=== PATIENT | male | born 1950 | race Two or more races ===

== ENCOUNTER 2024-10-15 22:57 | Emergency (ER) | payer OTHER, MEDICAID, SELFPAY ==
[2024-10-15 23:03] VITALS: BP 184/74; PULSE 104; PULSE 77; RESP 18; RESP 20; TEMP 37.3; O2SAT 100; O2SAT 98
[2024-10-15 23:06] VITALS: BMI 24.2
[2024-10-16] VITALS (7 sets, daily range): BP systolic 113–146; BP diastolic 63–85; PULSE 74–120; RESP 16–20; TEMP 36.7–37.2; O2SAT 95–100
[2024-10-16] MEDS: LIDOCAINE JELLY 2% (Urojet) 10 ML TUBE TOP (00:02)
--- NOTE | 2024-10-16 00:04 | PD.EDMALE ---
ED Male Genitalurinary RME/HPI General Chief complaint: Urogenital-Male Stated complaint: bleeding from penis Time Seen by Provider: 10/15/24 23:32 Arrival date/time: 10/15/24 22:57 Limitations: no limitations RME / HPI RME / HPI Narrative: Dr. Garner's Main ED Evaluation: 73yo male with a history of paraplegia following spinal sxm neurogenic bladder with indwelling catheter and hx of MDR UTIs, aFib not on anticoagulation, PAD, Right AKA, BPH, and DM BIBA from [facility] presents to the ED due to his penile area bleeding. Patient states he was having his lorenzo catheter changed by [facility] staff as a routine change. He states the regular nurse that changes his catheter was not there today and may have inserted it wrong. Patient states he has been unable to urinate since then and has had lower abdominal pain. Denies any other associated symptoms. Related Data Home Medications ?Medication ?Instructions ?Recorded ?Confirmed tamsulosin 0.4 mg capsule 0.4 mg PO QHS 09/06/21 11/13/23 duloxetine 30 mg capsule,delayed 30 mg PO BID 04/13/22 11/13/23 release lisinopril 20 mg tablet 20 mg PO DAILY 09/17/22 11/13/23 bisacodyl 10 mg rectal suppository 10 mg MS QDAY PRN Constipation 02/20/23 11/13/23 (Dulcolax (bisacodyl)) magnesium hydroxide 400 mg/5 mL 30 ml PO Q72H PRN Constipation 02/20/23 11/13/23 oral suspension (Milk of Magnesia) multivitamin with minerals 1 cap PO QDAY 02/20/23 11/13/23 amino acids-protein hydrolysate 15 1 ea PO BID Supplement 09/13/23 11/13/23 gram-100 kcal/30 mL oral liquid (Pro-Stat Sugar Free) cranberry fruit 400 mg capsule 425 mg PO QDAY 09/13/23 11/13/23 ferrous sulfate 325 mg (65 mg 325 mg PO BID 09/13/23 11/13/23 iron) tablet sodium phosphates 19 gram-7 118 ml MS Q72H PRN Constipation 09/13/23 11/13/23 gram/118 mL enema (Fleet Enema) spironolactone 25 mg tablet 12.5 mg PO QDAY 09/13/23 11/13/23 Lactobacillus rhamnosus GG 10 1 cap PO QDAY 11/13/23 11/13/23 billion cell capsule clopidogrel 75 mg tablet 75 mg PO QDAY 11/13/23 11/13/23 Allergies Allergy/AdvReac Type Severity Reaction Status Date / Time No Known Allergies Allergy Verified 10/15/24 23:03 Review of Systems Review of Systems Systems Reviewed: All systems reviewed, normal except as documented ED Exam General Limitations: Present no limitations General appearance: Present alert and in no apparent distress Head Head exam: Present atraumatic Eye Eye exam: Present normal appearance, PERRL and EOMI ENT ENT exam: Present normal exam, normal oropharynx and mucous membranes moist Neck Neck exam: Present normal inspection, full ROM and trachea midline Chest Chest inspection: Present normal inspection and symmetric chest wall rise Respiratory Respiratory exam: Present normal lung sounds bilaterally Cardiovascular Cardiovascular exam: Present regular rate, normal rhythm and normal heart sounds Abdominal Exam Abdominal exam: Present soft, distention and tenderness (minimal over the area of the bladder) exam: Present other (not circumsized; blood clot at the meatus that cleared) Extremities Exam Extremities exam: Present normal inspection and full ROM Back Exam Back exam: Present normal inspection and full ROM Neurological Exam Neurological exam: Present alert, oriented X3 and CN II-XII intact Psychiatric Psychiatric exam: Present normal affect and normal mood Skin Skin exam: Present warm, dry, intact and normal color Course Quality Measures none Orders Category Date Time Status CT Screening NOW Care 10/16/24 04:[address] abdomen pelvis w con Stat Exams 10/16/24 04:01 Ordered CBC Stat Lab 10/16/24 03:01 Completed CMP [Comprehensive Metabolic Panel] Stat Lab 10/16/24 03:01 Completed PT [Prothrombin Time with INR] Stat Lab 10/16/24 03:01 Completed PTT [Partial Thromboplastin Time] Stat Lab 10/16/24 03:01 Completed Type and Screen Stat Lab 10/16/24 03:01 Results Lidocaine Jelly 2% Urojet [Xylocaine Jelly 2% Urojet] Med 10/15/24 23:29 Discontinued See Dose Instructions TOP X1 ONE Ondansetron Inj [Zofran Inj] Med 10/16/24 00:26 Discontinued 4 mg IVP X1 ONE fentaNYL INJ [Sublimaze Inj] Med 10/16/24 00:00 Discontinued 100 mcg IVP X1 ONE Vital Signs Vital signs: Vital Signs Temperature 99.1 F 10/15/24 23:03 Pulse Rate 77 10/15/24 23:03 Respiratory Rate 18 10/15/24 23:03 Blood Pressure 184/74 H 10/15/24 23:03 Pulse Oximetry (%) 100 10/15/24 23:03 Oxygen Delivery Method Room Air 10/15/24 23:03 PROCEDURES: Catheter Insertion (Urinary) Patient has the following: other (Hematuria) Prophylactic Antibiotics Given: No Bladder Scan/US before Catheterization: Yes Estimated amount of urine (mL): 600 Preparation: Povidone-Iodine Type of Catheter Inserted: 3 way Catheter Slovak Size: 20 Topical Anesthesia Used: Yes Results: successfully catheterized-immediate flow Patient Tolerated Procedure: well Complications: bloody urine and other ( patient had some clots) Urogenital - Male MDM Narrative MDM Narrative:: Scribe Attestation: 10/16/24 - Yris Kaur am scribing for and in the presence of Dr. Garner. Bladder scan showed 601mL of urine. Patient received urojet and lorenzo catheter change. Multiple clots were removed and patient now has clear urine. 0221: Patient continues to have blood clots coming out of his lorenzo catheter. Labs and CT abdomen pelvis ordered. Patient data External records reviewed:: [facility] previous records (Per chart review, patient was admitted here on 11/12/23 for DANIELLE.) Clinical information provided by:: patient Social determinants that could affect healthcare access:: housing (SNF resident) Patient has the following chronic illnesses:: paraplegia following spinal sxm neurogenic bladder with indwelling catheter and hx of MDR UTIs, aFib not on anticoagulation, PAD, Right AKA, BPH, and DM How is presenting disease/condition affected by chronic disease/condition?: caused by Evaluation data The following diagnostics were reviewed and interpreted by me:: lab results Lab and/or radiology exams considered but not ordered:: none Interpretation Summary: WBC 12.0, Hgb 11.9, Hct 36.4, CMP normal. Medications / Prescriptions Medications or Prescriptions considered but not ordered:: none Medication administrations:: Medication Administration History Discontinued Medications Fentanyl Citrate (Fentanyl Cit Inj 50 Mcg/Ml Amp 2ml) 100 mcg IVP X1 ONE Stop: 10/16/24 00:01 Last Admin: 10/16/24 00:26 Dose: 100 mcg Documented By: LAMBERT Lidocaine HCl (Lidocaine Jelly 2% (Urojet) 10 Ml Tube) 0 ml TOP X1 ONE Stop: 10/15/24 23:30 Last Admin: 10/16/24 00:02 Dose: 10 ml Documented By: GEO Ondansetron HCl (Ondansetron Inj 2 Mg/Ml Inj 2 Ml) 4 mg IVP X1 ONE; Protocol Stop: 10/16/24 00:27 Last Admin: 10/16/24 00:36 Dose: 4 mg Documented By: LAMBERT see above Consultations Consultation(s) initiated? (list below): No Diagnosis Urogenital Male Differential Diagnosis: other (hematuria, trauma from initial lorenzo placement, lorenzo malfunction) Most likely diagnosis given after review of the tests above:: hematuria Admission Indicated Admission indicated?: not indicated Admission Request Was there a request for admission?: No Disposition Plan Disposition Plan: other (specify) (Signed out to Dr. Nava at [address] abdomen pelvis.) Discharge Plan Prescriptions/Referrals Prescriptions/Med Rec: No Action tamsulosin 0.4 mg capsule 0.4 mg PO QHS duloxetine 30 mg Capsule,Delayed Release(Dr/Ec) 30 mg PO BID lisinopril 20 mg tablet 20 mg PO DAILY Patient Comments: TAKE 1 TABLET BY MOUTH EVERY DAY Rx Instructions: HOLD for SBP <110 or HR <60 ferrous sulfate 325 mg (65 mg iron) Tablet 325 mg PO BID Fleet Enema 19-7 gram/118 mL Enema 118 ml MS Q72H PRN (Reason: Constipation) Rx Instructions: If Dulcolax suppository is ineffective; 3rd Line cranberry fruit 400 mg Capsule 425 mg PO QDAY Rx Instructions: administer with a meal spironolactone 25 mg Tablet 12.5 mg PO QDAY Pro-Stat Sugar Free 15-100 gram-kcal/30 mL Liquid 1 ea PO BID magnesium hydroxide [Milk of Magnesia] 400 mg/5 mL Suspension 30 ml PO Q72H PRN (Reason: Constipation) Rx Instructions: As needed for Constipation; NO BM for 3 days. First line bisacodyl [Dulcolax (bisacodyl)] 10 mg Suppository 10 mg MS QDAY PRN (Reason: Constipation) Rx Instructions: If MOM is ineffective; 2nd Line use. multivitamin with minerals Capsule 1 cap PO QDAY clopidogrel 75 mg tablet 75 mg PO QDAY Lactobacillus rhamnosus GG 10 billion cell Capsule 1 cap PO QDAY Referrals: Leoncio Franklin MD [Primary Care Provider] - In 1 week Problem List Clinical Impression: Hematuria Patient/Caregiver Discharge Instructions Print Language: Polish
[2024-10-16] MEDS: fentaNYL CIT INJ 50 mCg/ML AMP 2ML 100 MCG IVP (00:26)
[2024-10-16] MEDS: ONDANSETRON INJ 2 MG/ML INJ 2 ML 4 MG IVP (00:36)
[2024-10-16 03:22] LABS: Basophils # (Auto) 0.1 Thou/mm3 (0.0-0.2); Basophils % (Auto) 0 % (0-2.5); Eosinophils # (Auto) 0.4 Thou/mm3 (0.0-0.5); Eosinophils % (Auto) 4 % (0-10); Hematocrit 36.4 % (41.0-53.0); Hemoglobin 11.9 g/dL (13.5-16.0); Immature Granulocytes Auto 0.09 Thou/mm3 (0.00-0.00); Lymphocytes # (Auto) 3.0 Thou/mm3 (1.0-4.8); Lymphocytes % (Auto) 25 % (10-50); Mean Corpuscular HGB Conc 32.7 g/dl (31.0-37.0); Mean Corpuscular Hemoglobin 30.4 pg (25.0-35.0); Mean Corpuscular Volume 93 fL (80-100); Monocytes # (Auto) 0.9 Thou/mm3 (0.0-0.8); Monocytes % (Auto) 7 % (0-12); Neutrophils # (Auto) 7.6 Thou/mm3 (1.8-7.7); Neutrophils % (Auto) 63 % (37-80); Nucleated Red Blood Cell # 0.00 Thou/mm3 (0.00-0.00); Nucleated Red Blood Cell % 0 /100 WBC (0); Platelet Count 371 Thou/mm3 (140-440); RDW Standard Deviation 50.9 fL (35.1-43.9); Red Blood Count 3.91 Miln/mm3 (4.50-5.90); White Blood Count 12.0 Thou/mm3 (3.8-10.6)
[2024-10-16 03:27] LABS: INR 1.1 (0.9-1.3); Partial Thromboplastin Time 32.8 Seconds (22.0-36.0); Prothrombin Time 11.5 Seconds (9.0-12.2)
[2024-10-16 03:38] LABS: Albumin, Serum 4.0 gm/dL (3.4-4.8); Albumin/Globulin Ratio 1.1 (1.2-2.2); Alkaline Phosphatase 117 U/L (46-116); Anion Gap 9 (7-16); Aspartate Amino Transferase 12 U/L (0-34); BUN/Creatinine Ratio 21 Ratio (12-20); Bilirubin,Total 0.2 mg/dL (0.3-1.2); Blood Urea Nitrogen 15 mg/dL (9-23); Calcium 9.0 mg/dL (8.3-10.6); Calcium (Corrected) 9.0 mg/dL (8.5-10.1); Carbon Dioxide 21.6 mMol/L (20.0-31.0); Chloride 107 mMol/L (98-107); Creatinine (Component) 0.7 mg/dL (0.6-1.3); Estimated Creatinine Clearance 95.6 mL/min (>60); Globulin 3.6 gm/dL (2.3-3.5); Glucose 115 mg/dL (74-106); Osmolality,Calculated 277 (275-295); Potassium 4.7 mMol/L (3.4-5.1); Sodium 138 mMol/L (136-145); Total Protein 7.6 gm/dL (5.7-8.2); eGFR > 60 See Note
[2024-10-16 03:42] LABS: Alanine Aminotransferase < 7 U/L (10-49)
--- NOTE | 2024-10-16 04:01 | XR_ITS ---
Examination: CT abdomen with intravenous contrast CT pelvis with intravenous contrast 2-D coronal reconstructions 2-D sagittal reconstructions Date and time of exam:October 16, 2024, 0448 hours INDICATIONS: Gross hematuria today. CTDI: vol (mGy) 21.9 DLP: (mGycm) 998 Technique: Multiple axial sections of the abdomen and pelvis have been obtained. 64 slice high-resolution scanner used. 3 mm axial sections have been obtained, post intravenous injection 60 cc of Isovue 370 2-D sagittal, coronal reconstructions obtained. Low dose protocols were performed. One or more of the following dose reduction techniques were used; automated exposure control, adjustment of the mA and/or KV according to patient size, use of iterative reconstruction technique. Findings: No focal liver or splenic lesions No gallstones No pancreatic or adrenal mass Perinephric stranding with minimal hydronephrosis Normal appendix Left femoral neck fracture with cortical bone destruction involving contiguous margins at the fracture site and left hip effusion as well as fluid collection posterior and above the left hip joint, 5.9 cm Distended urinary bladder TURP defect with mild prostatomegaly, air in the urinary bladder Thickening of the urinary bladder IMPRESSION: Minimal bilateral hydronephrosis and perinephric stranding which may relate to distended urinary bladder Cystitis pattern Ununited left hip fracture with probable septic left hip arthritis 5.9 cm fluid collection posterior and above the left hip joint, hematoma versus abscess
--- NOTE | 2024-10-16 06:25 | EDNOTE_ITS ---
Emergency Room Addendum Addendum Narrative: 0600: Care assumed from Dr. Munoz, the previous shift emergency physician. Past medical, surgical, social and family history reviewed. Vitals and home medications reviewed. I will assume the care of the patient at this time, pending CT abd/pelvis and final disposition. Please refer to the emergency department record for history and examination from initial visit.?The following addendum documentation note is intended to reflect any pending information, findings, or radiology results not included in the patient?s initial chart. 0620: I spoke with teleradiologist who reports the lorenzo catheter bulb is in the urethra and advised advancing 8cm. 0630: Lorenzo catheter was repositioned and draining well. Manually drained ~ 100cc of bloody urine. 0900: RN reports patient completed CBI and urine has cleared up. Patient reports feeling improved and requesting to go home. We reviewed all the results, analysis, and treatment plans. Patient is amenable to discharge. Strict return precautions were outlined. RADIOLOGY Ordering Physician: Teressa Munoz MD Date of Service: 10/16/24 Procedure(s): CT abdomen pelvis w con Accession Number(s): [id number] cc: Leoncio Franklin MD; Rangel Florez MD; Teressa Munoz MD~ Examination: CT abdomen with intravenous contrast CT pelvis with intravenous contrast 2-D coronal reconstructions 2-D sagittal reconstructions Date and time of exam:October 16, 2024, 0448 hours INDICATIONS: Gross hematuria today. CTDI: vol (mGy) 21.9 DLP: (mGycm) 998 Technique: Multiple axial sections of the abdomen and pelvis have been obtained. 64 slice high-resolution scanner used. 3 mm axial sections have been obtained, post intravenous injection 60 cc of Isovue 370 2-D sagittal, coronal reconstructions obtained. Low dose protocols were performed. One or more of the following dose reduction techniques were used; automated exposure control, adjustment of the mA and/or KV according to patient size, use of iterative reconstruction technique. Findings: No focal liver or splenic lesions No gallstones No pancreatic or adrenal mass Perinephric stranding with minimal hydronephrosis Normal appendix Left femoral neck fracture with cortical bone destruction involving contiguous margins at the fracture site and left hip effusion as well as fluid collection posterior and above the left hip joint, 5.9 cm Distended urinary bladder TURP defect with mild prostatomegaly, air in the urinary bladder Thickening of the urinary bladder IMPRESSION: Minimal bilateral hydronephrosis and perinephric stranding which may relate to distended urinary bladder Cystitis pattern Ununited left hip fracture with probable septic left hip arthritis 5.9 cm fluid collection posterior and above the left hip joint, hematoma versus abscess Dictated By:Rangel Florez MD Signed By:<Electronically signed by Rangel Florez MD in OV>10/16/24 0725
--- NOTE | 2024-10-16 06:26 | PRELIM_ITS ---
PRELIM ADDENDUM On further review, the Fletcher is inflated in the mid urethra. Please reposition. Report Electronically Signed By: Daniel Amaral 10/16/2024 6:38:54 AM [EST] ORIGINAL PRELIM REPORT: CT scan of the abdomen and pelvis with intravenous contrast (axial sections with sagittal and coronal reformats) October 16, 2024 0448 hours Clinical History: This 73-year-old with gross hematuria Comparison: No prior study is available for comparison. Findings: Bilateral lower lobes atelectasis. The liver, gallbladder, pancreas, spleen and adrenals are unremarkable. Right renal simple cyst. Mild bilateral hydroureteronephrosis. Bilateral perinephric fat stranding. No evidence of bowel obstruction. The appendix is within normal limits. There is no mesenteric or retroperitoneal adenopathy. Urinary bladder wall thickening. Air within the urinary bladder. There is no free fluid or free air. Degenerative changes of the imaged portions of the spine. Chronic multilevel disc disease. No acute fractures. Status post posterior laminectomy of L4. Loss of the physiologic lumbar lordosis. Posterior fusion hardware between L4 and L5. Age-indeterminate fracture of the left femoral neck associated with peripheral hematoma and glenohumeral joint effusion. Collection with fluid air posterior to the left hip. Vascular calcifications. Impression: 1. Acute cystitis. 2. Age-indeterminate fracture of the left femoral neck associated with peripheral hematoma and glenohumeral joint effusion. Orthopedic consult is recommended. 3. Bilateral hydroureteronephrosis. 4. Collection with fluid air posterior to the left hip, abscess versus septic arthritis. 5. Mild bilateral perinephric fat stranding suspicious for medical renal disease. Discussion Details: Results Discussed With : Dr. Nava at 06:18 AM 10/16/2024 Report Electronically Signed By: Jasper Henderson 10/16/2024 6:26:07 AM [EST]
--- NOTE | 2024-10-16 07:26 | PC.NURSE ---
Received report from Tiffanie QUINONEZ and assumed care of patient. Fletcher catheter draining and 2600 ml fluid emptied. Patient has no complaints at this time.
--- NOTE | 2024-10-16 10:54 | PC.CC ---
Roselyn JONES was consulted by DEVI Quesada regarding transportation for the patient back to [facility]. KAREN made telephone contact with Neeru at [facility] for transportation for the patient back to the facility. Neeru reports she will be calling back as soon as she speaks to transportation team.
--- NOTE | 2024-10-16 11:32 | PC.CC ---
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 ASW called [facility] and reservation number was obtained [phone].
--- NOTE | 2024-10-16 13:21 | PC.CC ---
Addendum entered by Roselyn Cabral 10/16/24 14:47: 1445 ASW made contact with [facility] again and asked that the case be escalated as they have yet to assign a transportation company to picker tender the patient. Original Note: ASW, followed up with [facility] twice as [facility] has not received the reservation confirmation. They are working on assigning the trip.
== END 2024-10-16 15:47 | disposition skilled nursing facility (03) ==
PROVIDERS: Emergency Provider Emergency Medicine; PCP Hospitalist
DX: N13.30 Unspecified hydronephrosis (principal); Z96.0 Presence of urogenital implants
CPT/HCPCS: 36415; 74177; 80053; 85025; 85610; 85730; 86850; 86900; 86901; 96374; 96375; 99283; A4649; J2405; J3010; Q9967